=== PATIENT | male | born 1945 | race Two or more races ===

== ENCOUNTER 2019-03-25 08:48 | Outpatient (CLI) | payer OTHER | END 2019-03-25 08:56 | disposition home or self-care (01) | LOC: SONOGRAMA 08:48 | DX: E04.1 Nontoxic single thyroid nodule (principal) ==

== ENCOUNTER → 2019-07-18 | Outpatient (CLI) | payer OTHER | END | disposition home or self-care (01) | LOC: RX STUDY 10:12 | DX: R13.19 Other dysphagia (principal) ==

== ENCOUNTER → 2021-05-27 | Outpatient (CLI) | payer OTHER | END | disposition home or self-care (01) | LOC: SONOGRAMA 08:42 | PROVIDERS: ATTEND Pathology Anatomic Pathology & Clinical Pathology | DX: E04.8 Other specified nontoxic goiter (principal); D34 Benign neoplasm of thyroid gland; E06.5 Other chronic thyroiditis ==